=== PATIENT | male | born 1990 ===

== ENCOUNTER 2017-06-21 11:21 | Emergency (ER) | payer OTHER ==
[2017-06-21 11:22] VITALS: BMI 22.6
[2017-06-21 11:33] VITALS: BP 126/81; PULSE 83; TEMP 98.5
--- NOTE | 2017-06-21 11:43 | ED PDOC ---
Arrival/HPI - General Chief Complaint: Upper Extremity Problem/Injury Time Seen by Provider: 06/21/17 11:27 Historian: Patient - History of Present Illness Narrative History of Present Illness (Text): 06/21/17 11:40 Jorge Metzger is a 26 year old male, who presents to the emergency department for a cast check for right wrist done at [facility] one day ago. Patient expresses concern on the placement of the splint. Patient denies any fever, shortness of breath, numbness on fingers, or other complaints. Additionally, patient notes having an orthopedic appointment by the end of the week. Time/Duration: 24 hours Symptom Onset: Sudden Symptom Course: Resolved Past Medical History - Provider Review Nursing Documentation Reviewed: Yes - Cardiac Hx Cardiac Disorders: No - Pulmonary Hx Respiratory Disorders: Yes Hx Asthma: Yes - Neurological Hx Neurological Disorder: No - HEENT Hx HEENT Disorder: No - Renal Hx Renal Disorder: No - Endocrine/Metabolic Hx Endocrine Disorders: No - Hematological/Oncological Hx Blood Disorders: No - Integumentary Hx Dermatological Disorder: No - Musculoskeletal/Rheumatological Hx Musculoskeletal Disorders: No - Gastrointestinal Hx Gastrointestinal Disorders: No - Genitourinary/Gynecological Hx Genitourinary Disorders: No - Psychiatric Hx Psychophysiologic Disorder: No Hx Substance Use: No - Anesthesia Hx Anesthesia: No Family/Social History - Physician Review Nursing Documentation Reviewed: Yes Family/Social History: Unknown Family HX Smoking Status: Light Smoker < 10 Cigarettes Daily Hx Alcohol Use: No Hx Substance Use: No Allergies/Home Meds Allergies/Adverse Reactions: Allergies No Known Allergies Allergy (Verified 06/21/17 11:33) Review of Systems - Review of Systems Constitutional: absent: Fevers Respiratory: absent: SOB Cardiovascular: absent: Chest Pain Musculoskeletal: Other (check for right wrist splint) Physical Exam - Physical Exam Narrative Physical Exam (Text): Constitutional: No acute distress. Head: Normocephalic. Atraumatic. ENT: Moist mucous membranes. Cardiovascular: Cap refill < 2 seconds. Respiratory: No accessory muscle use. Musculoskeletal: FROM of digits. Sensation to touch intact. Splint appears applied properly without ability to range wrist. Skin: Fingers not cold or discolored. Neurologic: Alert, no focal deficit. Moves digits. 06/21/17 16:22 Vital Signs Reviewed: Yes Vital Signs Temp Pulse Resp BP Pulse Ox 06/21/17 12:20 18 99 06/21/17 11:30 98.5 F 83 16 126/81 98 Temperature: Afebrile Blood Pressure: Normal Pulse: Regular Respiratory Rate: Normal Appearance: Positive for: Well-Appearing, Non-Toxic, Comfortable Pain Distress: None Mental Status: Positive for: Alert and Oriented X 3 Medical Decision Making ED Course and Treatment: 06/21/17 Impression: 26 year old male concerned on right wrist splint placement. Plan: Reassured patient on splint placement. Discharged, instructed to return to ED immediately for numbness, coldness, pain of digits. - Scribe Statement The provider has reviewed the documentation as recorded by the Scribe Zeenat Pena Provider Scribe Attestation: All medical record entries made by the Scribe were at my direction and personally dictated by me. I have reviewed the chart and agree that the record accurately reflects my personal performance of the history, physical exam, medical decision making, and the department course for this patient. I have also personally directed, reviewed, and agree with the discharge instructions and disposition. Disposition/Present on Arrival - Present on Arrival Any Indicators Present on Arrival: No History of DVT/PE: No History of Uncontrolled Diabetes: No Urinary Catheter: No History of Decub. Ulcer: No History Surgical Site Infection Following: None - Disposition Have Diagnosis and Disposition been Completed?: Yes Diagnosis: Distal radius fracture, right Disposition: HOME/ ROUTINE Disposition Time: 11:43 Condition: STABLE Discharge Instructions (ExitCare): Splint Care (ED) Forms: [employer] (Fijian)
[2017-06-21 12:20] VITALS: RESP 18; O2SAT 99
== END 2017-06-21 12:21 | disposition home or self-care (01) ==
LOC: ED 11:21
DX: S52.501A Unspecified fracture of the lower end of right radius, initial encounter for closed fracture (principal); X58.XXXA Exposure to other specified factors, initial encounter